=== PATIENT | male | born 1980 | race Caucasian/White ===

== ENCOUNTER 2022-07-28 07:55 | Emergency (ER) | payer BC, SELFPAY ==
[2022-07-28] VITALS (8 sets, daily range): BP systolic 99–151; BP diastolic 65–105; PULSE 56–74; RESP 18; TEMP 36.3; O2SAT 94–99; BMI 31.5
[2022-07-28] MEDS: HYDROmorphone 0.5 mg/0.5 ml inj IVP (08:27)
[2022-07-28] MEDS: KETOROLAC 30 MG/ML inj IVP (08:28)
[2022-07-28] MEDS: ONDANSETRON 2 MG/ML inj 4 MG IVP (08:28)
[2022-07-28] MEDS: 0.9 % SODIUM CHLORIDE 1000 ml 1,000 ML IV (08:28)
--- NOTE | 2022-07-28 08:38 | ED.ABDPAIN ---
HPI - Abdominal Pain General Date Seen: 07/28/22 Chief Complaint: Abdominal Pain Stated Complaint: Right side abdominal pain Time Seen by Provider: 07/28/22 08:15 Source: patient and family Mode of arrival: ambulatory Limitations: no limitations History of Present Illness HPI narrative: Patient is a 42-year-old gentleman who presents here with right-sided abdominal pain, this started yesterday, was fairly bad yesterday, then defervesced after an episode of vomiting, he describes in the right side of his lower back, with radiation to the front to the groin and testicle. Is associated with vomiting this morning, he said the pain did calmed down yesterday he was able to work all day. He did not take any medications the pain other than his normal medications, he presents here today with his , denies a history of blood in his urine, fevers chills coughing wheezing, never before had episode of this pain, no previous history of surgeries, denies any chest pain associated with this, there is a family history of kidney disease in the family, his mom required a kidney transplant. On medications for hypertension. Related Data Home Medications Medication Instructions Recorded Confirmed amlodipine 10 mg tablet 10 mg PO 04/27/22 04/27/22 metoprolol succinate 50 mg tab PO 04/27/22 04/27/22 tablet,extended release 24 hr Previous Rx's Medication Instructions Recorded hydrocodone 5 mg-acetaminophen 325 1 tab PO TID PRN pain #14 tabs 07/28/22 mg tablet ondansetron 4 mg disintegrating 4 mg PO BID-TID PRN nausea and 07/28/22 tablet vomiting #14 tabs Allergies Allergy/AdvReac Type Severity Reaction Status Date / Time No Known Drug Allergies Allergy Verified 04/27/22 13:44 Review of Systems Status of ROS Reports: 10 or more systems reviewed and unremarkable except as noted in History and below PFSH [facility] Social History Smoking Status: Never smoker Exam Narrative: Exam Narrative: Review of his vital signs is done, these are stable, he is in the position moving around the room characteristic of renal colic, we will go ahead and give him some medications, to help the pain, as he is not examinable at the present time. 9:07 a.m., pain is improved, down to approximately a 6 level. Initially it was out of 10. Pupils equal round reactive to light there is no scleral icterus redness, TMs are normal, oropharynx is normal, good hydration status, neck is supple, chest is clear bilaterally with no wheezing crackles noted no signs of respiratory distress, S1-S2 are normal there is no S3-S4 clicks murmurs or gallops noted, abdomen is soft and obese, there is no guarding no organomegaly, bowel sounds are normal, groins are both normal, with no hernias, testicles both descended and normal nonpainful, or tender or swollen. Circumcised male, no CVA tenderness is noted, no lumbar tenderness is noted. Skin reveals no rashes, neurologically intact moving all extremities and well. I discussed with them that I suspect that this is related to renal colic, get a CT noncontrast, and weight the remainder of the blood test, and urine test Const: Vital Signs, click to edit/add: Vital Signs - 24 hr 07/28/22 08:01 07/28/22 10:38 07/28/22 10:39 Temperature 97.3 F L Pulse Rate 66 74 Pulse Rate [Right Pulse Oximeter] 67 Respiratory Rate 18 Blood Pressure 119/71 Blood Pressure [Ri ght Upper Arm] 144/87 H Pulse Oximetry 97 94 95 Oxygen Delivery Me thod Room Air 07/28/22 08:25 07/28/22 08:30 07/28/22 09:00 Temperature Pulse Rate Pulse Rate [Right Pulse Oximeter] 65 72 Respiratory Rate Blood Pressure Blood Pressure [Ri ght Upper Arm] 123/75 132/85 151/105 H Pulse Oximetry 98 99 Oxygen Delivery Me thod Room Air 07/28/22 09:30 07/28/22 10:00 Temperature Pulse Rate Pulse Rate [Right Pulse Oximeter] 56 L 56 L Respiratory Rate Blood Pressure Blood Pressure [Ri ght Upper Arm] 109/65 99/69 Pulse Oximetry 96 Oxygen Delivery Me thod Room Air Room Air Course Course Hospital Course: Patient improved here with the treatments, his pain defervesced, to 1 or 2, CT showed the right-sided mid ureter tear all 3-4 mm stone, with some mild hydronephrosis, consistent with renal colic. Explained to the patient in the , the treatment the course and the prognosis, we went over the signs symptoms worsening and winter be re-evaluated. Vital Signs Vital signs: Initial Vital Signs Temperature 97.3 F L 07/28/22 08:01 Temperature Source Temporal Artery Scan 07/28/22 08:01 Pulse Rate 67 07/28/22 08:01 Respiratory Rate 18 07/28/22 08:01 Blood Pressure 144/87 H 07/28/22 08:01 Blood Pressure Mean 106 07/28/22 08:01 Blood Pressure Position Supine 07/28/22 08:01 Pulse Oximetry 97 07/28/22 08:01 Oxygen Delivery Method 07/28/22 08:01 Vital Signs Temperature 97.3 F L 07/28/22 08:01 Pulse Rate 67 07/28/22 08:01 Respiratory Rate 18 07/28/22 08:01 Blood Pressure 144/87 H 07/28/22 08:01 Pulse Oximetry 97 07/28/22 08:01 Oxygen Delivery Method 07/28/22 08:01 Temperature 97.3 F L 07/28/22 08:01 Pulse Rate 74 07/28/22 10:39 Respiratory Rate 18 07/28/22 08:01 Blood Pressure 119/71 07/28/22 10:38 Pulse Oximetry 95 07/28/22 10:39 Oxygen Delivery Method 07/28/22 10:00 MDM - Abdominal Pain MDM Narrative Medical decision making narrative: During this evaluation of this patient I considered multiple differential diagnosis is which included the life-threatening such as appendicitis, aortic aneurysm, mesenteric ischemia, bowel perforation, volvulus, and bowel obstruction. Other differential diagnosis is include but are not limited to cholecystitis, pancreatitis, hepatitis, gastritis, GERD, diverticulitis, peptic ulcer disease, pyelonephritis/UTI, renal colic/stone, testicular torsion as well as other acute scrotal processes, inflammatory bowel disease, as well as other etiologies Medical Records Attestation: I reviewed the patient's medical records. Lab Data Attestation: I reviewed the patient's lab results. Labs: Lab Results 07/28/22 07/28/22 07/28/22 Range/Units 08:14 08:30 08:30 WBC 6.32 (4.50-11.00) K/uL RBC 5.28 (4.30-5.90) m/uL Hgb 15.0 (13.5-17.5) gm/dL Hct 44.4 (37.0-53.0) % MCV 84 (80-100) fL MCH 28 (26-34) pg MCHC 34 (32-36) gm/dL RDW Coeff of Florina 12.6 (11.5-15.5) % Plt Count 320 (140-440) K/uL Neut % (Auto) 70.8 (42.0-72.0) % Lymph % (Auto) 20.1 (20-44) % [place] % (Auto) 7.0 (0.0-11.0) % Eos % (Auto) 1.6 (0.0-7.0) % Baso % (Auto) 0.3 (0.0-3.0) % Neut # (Auto) 4.48 (1.7-7.0) K/uL Lymph # (Auto) 1.27 (0.90-2.90) K/uL [place] # (Auto) 0.40 (0.00-0.90) K/UL Eos # (Auto) 0.10 (0.00-0.50) K/uL Baso # (Auto) 0.02 (0.00-0.30) K/uL Abs Immat Gran (auto) 0.01 (0.00-0.30) K/uL Imm/Tot Granulo (auto) 0.2 % Sodium 140 (135-149) mmol/L Potassium 4.2 (3.6-5.1) mmol/L Chloride 106 (96-114) mmol/L Carbon Dioxide 25 (20-32) mmol/L BUN 18 (5-24) mg/dL Creatinine 1.2 (0.5-1.5) mg/dL Estimated Creat Clear 95.14 Estimated GFR 78 ml/min Glucose 143 H (60-115) mg/dL Lactate (0.5-1.9) mmol/L Calcium 9.4 (8.4-10.6) mg/dL Total Bilirubin (0.1-1.5) mg/dL Direct Bilirubin (0.0-0.5) mg/dL AST (12-35) U/L ALT (4-50) U/L Alkaline Phosphatase (40-150) U/L Troponin I (0.01-0.04) ng/mL C-Reactive Protein (0.5-1.0) mg/dL Total Protein (6.0-8.3) g/dL Albumin (3.3-5.0) g/dL Amylase 94 H (18-89) U/L Lipase (23-300) U/L Urine Color (Yellow) Urine Appearance (Clear) Urine pH (5.0-8.5) Ur Specific [place] (1.000-1.030) Urine Protein (Negative) Urine Glucose (UA) (Negative) Urine Ketones (Negative) Urine Blood (Negative) Urine Nitrite (Negative) Urine Bilirubin (Negative) Urine Urobilinogen (0.2-1.0) Ur Leukocyte Esterase (Negative) Urine RBC (0-2) Urine WBC (0-5) Ur Squamous Epith Cells (None-Few) Urine Bacteria (None) Ethyl Alcohol (0.01-0.03) % SARS-CoV-2 (PCR) Negative SARS-CoV-2 (Negative) Influenza Type A (PCR) Negative PCR FLU A (Negative) Influenza Type B (PCR) Negative PCR FLU B (Negative) RSV (PCR) Negative PCR RSV (Negative) 07/28/22 07/28/22 07/28/22 Range/Units 08:30 08:30 10:58 WBC (4.50-11.00) K/uL RBC (4.30-5.90) m/uL Hgb (13.5-17.5) gm/dL Hct (37.0-53.0) % MCV (80-100) fL MCH (26-34) pg MCHC (32-36) gm/dL RDW Coeff of Florina (11.5-15.5) % Plt Count (140-440) K/uL Neut % (Auto) (42.0-72.0) % Lymph % (Auto) (20-44) % [place] % (Auto) (0.0-11.0) % Eos % (Auto) (0.0-7.0) % Baso % (Auto) (0.0-3.0) % Neut # (Auto) (1.7-7.0) K/uL Lymph # (Auto) (0.90-2.90) K/uL [place] # (Auto) (0.00-0.90) K/UL Eos # (Auto) (0.00-0.50) K/uL Baso # (Auto) (0.00-0.30) K/uL Abs Immat Gran (auto) (0.00-0.30) K/uL Imm/Tot Granulo (auto) % Sodium (135-149) mmol/L Potassium (3.6-5.1) mmol/L Chloride (96-114) mmol/L Carbon Dioxide (20-32) mmol/L BUN (5-24) mg/dL Creatinine (0.5-1.5) mg/dL Estimated Creat Clear Estimated GFR ml/min Glucose (60-115) mg/dL Lactate 2.1 H (0.5-1.9) mmol/L Calcium (8.4-10.6) mg/dL Total Bilirubin 1.1 (0.1-1.5) mg/dL Direct Bilirubin 0.1 (0.0-0.5) mg/dL AST 36 H (12-35) U/L ALT 55 H (4-50) U/L Alkaline Phosphatase 89 (40-150) U/L Troponin I < 0.01 L (0.01-0.04) ng/mL C-Reactive Protein < 0.5 L (0.5-1.0) mg/dL Total Protein 7.8 (6.0-8.3) g/dL Albumin 4.8 (3.3-5.0) g/dL Amylase (18-89) U/L Lipase 65 (23-300) U/L Urine Color Yellow (Yellow) Urine Appearance Clear (Clear) Urine pH 6.0 (5.0-8.5) Ur Specific [place] 1.025 (1.000-1.030) Urine Protein Negative (Negative) Urine Glucose (UA) Negative (Negative) Urine Ketones Negative (Negative) Urine Blood 2+ A (Negative) Urine Nitrite Negative (Negative) Urine Bilirubin Negative (Negative) Urine Urobilinogen 0.2 (0.2-1.0) Ur Leukocyte Esterase Negative (Negative) Urine RBC 10-25 A (0-2) Urine WBC 0-2 (0-5) Ur Squamous Epith Cells Few (None-Few) Urine Bacteria None (None) Ethyl Alcohol < 0.01 L (0.01-0.03) % SARS-CoV-2 (PCR) (Negative) Influenza Type A (PCR) (Negative) Influenza Type B (PCR) (Negative) RSV (PCR) (Negative) Imaging Data CT scan - abdomen: Attestation: I have reviewed the pertinent imaging results. My impression: Right-sided renal colic with 3-4 mm mid ureteral stone, with mild hydronephrosis Radiologist's impression: Same as above Discharge Plan Discharge Clinical Impression: Renal colic on right side Patient Disposition: Home w/ Parent or Adult Condition: Improved Instructions: Renal Colic (ED) Additional Instructions: Home rest use of ibuprofen 800 mg p.o. t.i.d. solidly for the next 2-3 days. After that you may use it p.r.n. breakthrough pain should be treated with hydrocodone, along with the Zofran for nausea, both these medications can cause constipation, if use any more of these type of medications please use MiraLax once a day. Increasing pain, nausea vomiting, or other issue you should come back and be seen, but I think this will resolve itself. Follow-up in 1 weeks time with primary care suggested, Prescriptions: New hydrocodone-acetaminophen 5-325 mg tablet 1 tab PO TID PRN (Reason: pain) Qty: 14 0RF ondansetron 4 mg tablet,disintegrating 4 mg PO BID-TID PRN (Reason: nausea and vomiting) Qty: 14 0RF No Action amlodipine 10 mg tablet 10 mg PO Label Comments: TAKE ONE TABLET BY MOUTH ONE TIME DAILY metoprolol succinate 50 mg tablet extended release 24 hr PO Follow Up/Referrals: Roney Pineda MD [Primary Care Provider] - Stand Alone Forms: [employer] Info Instructions
[2022-07-28 08:39] LABS: Lactate* 2.1 mmol/L (0.5-1.9)
[2022-07-28 08:40] LABS: Basophils Absolute Auto 0.02 K/uL (0.00-0.30); Basophils Percent Auto 0.3 % (0.0-3.0); Eosinophils Percent Auto 1.6 % (0.0-7.0); Hematocrit 44.4 % (37.0-53.0); Immature Granulocytes Abs Auto 0.01 K/uL (0.00-0.30); Immature Granulocytes Pct Auto 0.2 %; Lymphocytes Absolute Auto 1.27 K/uL (0.90-2.90); Lymphocytes Percent Auto 20.1 % (20-44); Mean Corpuscular HGB Conc 34 gm/dL (32-36); Mean Corpuscular Hemoglobin 28 pg (26-34); Mean Corpuscular Volume 84 fL (80-100); Neutrophils Absolute Auto 4.48 K/uL (1.7-7.0); Neutrophils Percent Auto 70.8 % (42.0-72.0); Platelet Count* 320 K/uL (140-440); RDW Coefficient of Variation % 12.6 % (11.5-15.5); Red Blood Count 5.28 m/uL (4.30-5.90); Slide Review Reflex No; White Blood Count* 6.32 K/uL (4.50-11.00)
[2022-07-28 08:57] LABS: Albumin* 4.8 g/dL (3.3-5.0)
[2022-07-28 08:58] LABS: Chloride* 106 mmol/L (96-114); Potassium* 4.2 mmol/L (3.6-5.1); Sodium* 140 mmol/L (135-149)
[2022-07-28 09:00] LABS: Alanine Aminotransferase* 55 U/L (4-50); Alkaline Phosphatase* 89 U/L (40-150); Aspartate Amino Transferase* 36 U/L (12-35); Bilirubin Direct* 0.1 mg/dL (0.0-0.5); Bilirubin Total* 1.1 mg/dL (0.1-1.5); Lipase* 65 U/L (23-300); Total Protein* 7.8 g/dL (6.0-8.3)
[2022-07-28 09:01] LABS: Amylase* 94 U/L (18-89); Blood Urea Nitrogen* 18 mg/dL (5-24); Carbon Dioxide* 25 mmol/L (20-32); Creatinine* 1.2 mg/dL (0.5-1.5); Est. Creatinine Clearance* 95.14; Estimated Glomerular Filt Rate 78 ml/min
[2022-07-28 09:02] LABS: Calcium* 9.4 mg/dL (8.4-10.6); Glucose* 143 mg/dL (60-115)
--- NOTE | 2022-07-28 09:06 | CRLHL7_ITS ---
For Patients: As a result of the Century Cures Act, medical imaging exams and procedure reports are released immediately into your electronic medical record. You may view this report before your referring provider. If you have questions, please contact your health care provider. Indication: ABD PAIN, RIGHT SIDED, SUSPECT RENAL COLIC Technique: Routine noncontrast CT abdomen and pelvis Please note that all CT scans at this facility use dose modulation, iterative reconstruction, and/or weight-based dosing when appropriate to reduce radiation dose to as low as reasonably achievable. Comparison: None Findings: Tiny punctate densities are present at the corticomedullary junction at the upper pole of the right kidney. No hydronephrosis. Slight right periureteral stranding. There is a stone within the mid right ureter measuring 3 millimeters. Normal left ureter. Left kidney normal. Spleen unremarkable. Normal noncontrast enhanced liver and gallbladder. Normal pancreas. Lung bases clear. No bowel obstruction, free air, free fluid or adenopathy. No bladder stone. Normal appendix. No diverticulitis. No abdominal wall hernia. Bilateral pars defects L5. Impression: 3 millimeter stone in the mid right ureter without hydronephrosis. Slight perinephric stranding is present, however. Normal appendix. Please note that all CT scans at this facility use dose modulation, iterative reconstruction, and/or weight-based dosing when appropriate to reduce radiation dose to as low as reasonably achievable. Dictated by Roney Ayala MD @ 07/28/2022 10:34:55 AM (Electronically Signed)
[2022-07-28 09:07] LABS: C Reactive Protein* < 0.5 mg/dL (0.5-1.0); Ethanol* < 0.01 % (0.01-0.03)
[2022-07-28 09:16] LABS: PCR FLU A Negative PCR FLU A (Negative); PCR FLU B Negative PCR FLU B (Negative); PCR RSV Negative PCR RSV (Negative)
[2022-07-28 09:16] LABS: Troponin I* < 0.01 ng/mL (0.01-0.04)
[2022-07-28] MEDS: fentaNYL 100 MCG/2 ML inj 50 MCG IVP (09:20)
--- NOTE | 2022-07-28 09:34 | ED.NURSE ---
pain does wax and wanes. ivf infused. will get a ct scan.
[2022-07-28 09:51] LABS: SARS PCR* Negative SARS-CoV-2 (Negative)
[2022-07-28 11:11] LABS: Appearance Urine Clear (Clear); Bilirubin Urine Negative (Negative); Blood Urine 2+ (Negative); Color Urine Yellow (Yellow); Glucose Urine Negative (Negative); Ketones Urine Negative (Negative); Leukocyte Esterase Urine Negative (Negative); Nitrite Urine Negative (Negative); Protein Urine Negative (Negative); Specific Gravity Urine 1.025 (1.000-1.030); Urobilinogen Urine 0.2 (0.2-1.0)
[2022-07-28 11:18] LABS: Squamous Epithelial Cell Urine Few (None-Few); WBC Urine 0-2 (0-5)
== END 2022-07-28 12:02 | disposition home or self-care (01) ==
PROVIDERS: Emergency Provider Family Medicine; PCP Family Medicine
DX: N23 Unspecified renal colic (principal)
CPT/HCPCS: 36415; 74176; 80048; 80076; 81001; 82077; 82150; 83605; 83690; 84484; 85025; 86140; 87502; 87634; 87635; 96374; 96375; 99284; J1170; J1885; J2405; J3010; J7030

== ENCOUNTER 2023-01-01 12:05 | Outpatient (CLI) | payer BC, SELFPAY | END 2023-01-01 12:06 | disposition home or self-care (01) | PROVIDERS: PCP Family Medicine; Visit Provider Family Medicine | DX: I10 Essential (primary) hypertension (principal); R53.83 Other fatigue | CPT/HCPCS: 80061; 84443 ==

== ENCOUNTER 2023-06-18 13:58 | Outpatient (CLI) | payer BC, SELFPAY | END 2023-06-18 13:59 | disposition home or self-care (01) | PROVIDERS: PCP Family Medicine; Visit Provider Family Medicine | DX: E78.2 Mixed hyperlipidemia (principal); I10 Essential (primary) hypertension; R68.82 Decreased libido | CPT/HCPCS: 80048; 80061; 84403 ==

== ENCOUNTER 2025-01-23 14:43 | Outpatient (CLI) | payer BC, SELFPAY | END 2025-01-23 14:44 | disposition home or self-care (01) | PROVIDERS: PCP Family Medicine; Visit Provider Family Medicine | DX: E78.2 Mixed hyperlipidemia (principal); I10 Essential (primary) hypertension; R79.89 Other specified abnormal findings of blood chemistry; R53.83 Other fatigue | CPT/HCPCS: 80048; 80061; 84403; 84443; 85025 ==

== ENCOUNTER 2025-02-20 14:40 | Outpatient (CLI) | payer BC, SELFPAY ==
--- OUTSIDE RECORDS SUMMARY | 2025-02-21 00:57 | XMS_ITS | Clinical Summary ---
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 Gender Identity Not on file Sexual Orientation Not on file Last Filed Vital Signs Vital Sign Reading Time Taken Comments Blood Pressure 112/74 03/25/2005 9:30 AM CDT Pulse 54 03/25/2005 9:30 AM CDT Temperature 36.3 C (97.3 F) 03/25/2005 7:00 AM CDT Respiratory Rate 18 03/25/2005 9:30 AM CDT Oxygen Saturation 98% 03/25/2005 9:30 AM CDT Inhaled Oxygen Concentration - - Weight 88.5 kg (195 lb) 03/25/2005 7:00 AM CDT Height 190.5 cm (6' 3) 03/25/2005 7:00 AM CDT Body Mass Index 24.37 03/25/2005 7:00 AM CDT Plan of Treatment Health Maintenance Due Date Last Done Comments Tdap 1993 Depression screening for age 12+ 1994 HIV for age 15-65 1997 BMI (ht and wt on same day) for age 18+ 01/30/2000 Hepatitis C screening for ag e 18-79 01/30/2000 Hepatitis B series for 19+ ( 1 of 3 - 19+ 3-dose series) 2001 Tetanus booster 2002 Lipids for age 35-44 2017 COVID-19 vaccine series (2023-25 season) 2024 Influenza Vaccine (Season Ended) 2025 Pneumococcal series for age 6-49 Aged Out No longer eligible based on patient's age to complete this topic Insurance [facility] Care Teams Agricultural Chemicals Inspector Relationship Specialty Start Date End Date Geeta Patten MD [address] [place] [address] [place] [address] PCP - General 03/25/05
--- NOTE | 2025-02-27 09:44 | W.PM.SLEEP ---
Sleep Study Details Details Interpreting Provider: Jeffrey Date of Sleep Study: 02/20/25 Sleep Study Details: STUDY TYPE:? Home unattended ? BMI:? 33.4 ORDERING PROVIDER:? Jeffrey INDICATION:? Concerns about sleep apnea ? SLEEP SUMMARY:? 472 minutes monitored RESPIRATORY SUMMARY:? AHI 24.8 per rule 1A, 20.2 per CMS guideline Low oxygen 74 4% of study oxygen less than 90% Snoring 96% PERIODIC LIMB MOVEMENTS OF SLEEP:? Not recorded CARDIAC:? 44-106, mean 59.4 beats per minute IMPRESSION:? Moderate obstructive sleep apnea RECOMMENDATION: Treatment options include CPAP, dental appliance and/or airway expansion surgery.
== END 2025-02-20 14:41 | disposition home or self-care (01) ==
LOC: SLEEP 14:41
PROVIDERS: PCP Family Medicine; Visit Provider Otolaryngology
DX: G47.33 Obstructive sleep apnea (adult) (pediatric) (principal)
CPT/HCPCS: 95806

== ENCOUNTER 2025-05-23 09:21 | Outpatient (CLI) | payer BC, SELFPAY ==
[2025-05-23 15:46] LABS: Chlamydia DNA Amplified* NOT DETECTED (No Detected); GC DNA Amplified* NOT DETECTED (No Detected)
== END 2025-05-23 09:22 | disposition home or self-care (01) ==
LOC: FRMREF 09:21
PROVIDERS: PCP Family Medicine; Visit Provider Physician Assistant Medical
DX: R30.0 Dysuria (principal)
CPT/HCPCS: 87086; 87491; 87591